=== PATIENT | male | born 1950 | race Caucasian/White ===

== ENCOUNTER 2019-10-02 10:52 | Outpatient (RCR) | payer MEDICARE, BC ==
[~2019-10-02 10:52] MED LIST: CALAN SR240 MG PO; CARDIZEM CD 30300 MG PO; CLOPIDOGREL; FAMVIR250 MG PO; FLOMAX 0.40.4 MG/CAP PO; HCTZ 25MG TAB25 MG PO; HCTZ 25MG25 MG PO; K-DUR 2020 MEQ PO; LIPITOR 80MG80 MG PO; LISINOPRIL; LISINOPRIL30 MG PO; PERCOCET 325 MG1 TA2 PO; PLAVIX 75MG TAB75 MG PO; POTASSIUM CH2 MEQ/ML PO; PREDNISONE20 MG PO; PRINIVIL40 MG PO; VERAPAMIL; VYTORIN; ZOFRAN ODT4 MG PO
[2019-10-13] MEDS ORDERED: CELEBREX 200MG200 MG PO (07:05)
[2019-10-13] MEDS ORDERED: ASPI325T6 PO (07:05)
[2019-10-13] MEDS ORDERED: ROXICODONE 55 MG/TAB PO (07:06)
[2019-10-13] MEDS ORDERED: ULTRAM 50MG TAB50 MG PO (07:06)
[2019-10-13] MEDS ORDERED: SENOKOT S 50 MG1 TAB PO (07:07)
== END 2019-12-11 11:03 | disposition home or self-care (01) ==
LOC: WSPT 10:52
DX: Z01.818 Encounter for other preprocedural examination (principal)

== ENCOUNTER 2019-10-11 06:30 | Day surgery (SDC) | payer MEDICARE, BC ==
[2019-10-11] VITALS (14 sets, daily range): BP systolic 114–152; BP diastolic 58–83; PULSE 60–83; TEMP 97.6–98.2
[~2019-10-11] VITALS: Ht 177.8 cm; Wt 88.2 kg
[2019-10-12 05:09] VITALS: BP 122/67; PULSE 67; TEMP 98.1
[2019-10-12 07:29] LABS: HEMOGLOBIN 12.5 g/dl (13.5-18.0)
[2019-10-12 07:32] LABS: HEMATOCRIT 35.8 % (42.0-52.0)
[2019-10-12 08:13] VITALS: BP 135/66; PULSE 73; TEMP 98.6
[2019-10-12 12:41] VITALS: BP 143/74; PULSE 73; TEMP 98.5
[2019-10-12 16:02] VITALS: BP 115/57; PULSE 58; TEMP 98.5
[2019-10-12 20:06] VITALS: BP 123/68; PULSE 60; TEMP 97.1
[2019-10-13 01:59] VITALS: BP 128/64; PULSE 63; TEMP 97.8
[2019-10-13 04:57] VITALS: BP 114/65; PULSE 76; TEMP 97.6
[2019-10-13] MEDS ORDERED: CELEBREX 200MG200 MG PO (07:05)
[2019-10-13] MEDS ORDERED: ASPI325T6 PO (07:05)
[2019-10-13 07:06] LABS: HEMATOCRIT 36.7 % (42.0-52.0); HEMOGLOBIN 12.8 g/dl (13.5-18.0)
[2019-10-13] MEDS ORDERED: ROXICODONE 55 MG/TAB PO (07:06)
[2019-10-13] MEDS ORDERED: ULTRAM 50MG TAB50 MG PO (07:06)
[2019-10-13] MEDS ORDERED: SENOKOT S 50 MG1 TAB PO (07:07)
[2019-10-13 07:42] VITALS: BP 138/67; PULSE 77; TEMP 97.6
[2019-10-13 13:33] VITALS: BP 100/46; PULSE 62; TEMP 97.7
== END 2019-10-13 14:35 | disposition home or self-care (01) ==
LOC: JCC 06:30 → SDCO 06:30 → JCC 06:31 → EDSTATUS 10:30 → JCC 10-13 14:35 → SDCO 10-13 14:35
PROVIDERS: Orthopaedic Surgery
DX: M16.11 Unilateral primary osteoarthritis, right hip (principal); E78.00 Pure hypercholesterolemia, unspecified; I69.354 Hemiplegia and hemiparesis following cerebral infarction affecting left non-dominant side; I69.328 Other speech and language deficits following cerebral infarction; I10 Essential (primary) hypertension; Z79.02 Long term (current) use of antithrombotics/antiplatelets; Z80.9 Family history of malignant neoplasm, unspecified; Z79.899 Other long term (current) drug therapy
CPT/HCPCS: OP; A4314; A9284; C1776; J0690; J1100; J2250; J2405; J2704; J3010; J7030; J7050; J7120

== ENCOUNTER 2019-11-16 09:00 | Outpatient (RCR) | payer MEDICARE, BC ==
[~2019-11-16 09:00] MED LIST changes: +ASPI325T6 PO; +CELEBREX 200MG200 MG PO; +ROXICODONE 55 MG/TAB PO; +SENOKOT S 50 MG1 TAB PO; +ULTRAM 50MG TAB50 MG PO
== END 2019-12-11 11:03 | disposition home or self-care (01) ==
LOC: WSPT 09:00
DX: Z01.812 Encounter for preprocedural laboratory examination (principal); M16.11 Unilateral primary osteoarthritis, right hip

== ENCOUNTER 2020-11-10 11:53 | Emergency (ER) | payer MEDICARE, BC ==
[~2020-11-10] VITALS: Ht 177.8 cm; Wt 86.4 kg
[2020-11-10 12:19] VITALS: TEMP 98.2
[2020-11-10] MEDS ORDERED: CEPHALEXIN500 M1 PO (14:46)
[2020-11-10 15:10] VITALS: BP 145/61; PULSE 88
== END 2020-11-10 15:16 | disposition home or self-care (01) ==
LOC: COL.ER 11:53
DX: S61.411A Laceration without foreign body of right hand, initial encounter (principal); E11.9 Type 2 diabetes mellitus without complications; I10 Essential (primary) hypertension; E78.5 Hyperlipidemia, unspecified; M79.7 Fibromyalgia; G89.29 Other chronic pain; M54.9 Dorsalgia, unspecified; Z79.891 Long term (current) use of opiate analgesic; Z79.899 Other long term (current) drug therapy; W20.8XXA Other cause of strike by thrown, projected or falling object, initial encounter

== ENCOUNTER → 2021-02-04 | Outpatient (CLI) | payer MEDICARE, BC ==
[~2021-02-04] MED LIST changes: +CEPHALEXIN500 M1 PO
== END ==
LOC: MHCPAIN 08:08
DX: M47.817 Spondylosis without myelopathy or radiculopathy, lumbosacral region (principal); M96.1 Postlaminectomy syndrome, not elsewhere classified; M54.50 Low back pain, unspecified; M53.3 Sacrococcygeal disorders, not elsewhere classified
CPT/HCPCS: G0463

== ENCOUNTER → 2021-02-18 | Outpatient (CLI) | payer MEDICARE, BC | LOC: MHCPAIN 12:53 | DX: M47.817 Spondylosis without myelopathy or radiculopathy, lumbosacral region (principal); M53.3 Sacrococcygeal disorders, not elsewhere classified | CPT/HCPCS: G0260; J1040; Q9967 ==

== ENCOUNTER → 2021-03-12 | Outpatient (CLI) | payer MEDICARE, BC | LOC: MHCPAIN 10:17 | DX: M47.816 Spondylosis without myelopathy or radiculopathy, lumbar region (principal); M54.50 Low back pain, unspecified; M53.3 Sacrococcygeal disorders, not elsewhere classified; M25.551 Pain in right hip | CPT/HCPCS: G0463 ==

== ENCOUNTER → 2021-07-08 | Outpatient (CLI) | payer MEDICARE, BC | LOC: MHCPAIN 10:11 | DX: M47.896 Other spondylosis, lumbar region (principal); M25.551 Pain in right hip; M53.3 Sacrococcygeal disorders, not elsewhere classified | CPT/HCPCS: G0463 ==

== ENCOUNTER 2022-05-24 17:25 | Emergency (ER) | payer MEDICARE, BC ==
[~2022-05-24 17:25] MED LIST changes: +B-121000 MCG PO; +HYGROTON 2525 MG/TAB
[2022-05-24 17:31] VITALS: TEMP 98.1
[2022-05-24 17:37] LABS: BASO # 0.1 K/mm3 (0.0-0.2); BASO % 0.7 % (0.0-2.0); EOS # 0.2 K/mm3 (0.0-0.7); EOS % 2.8 % (0.0-4.0); GRAN # 4.5 K/mm3 (1.4-6.5); GRAN % 53.2 % (42.2-75.2); HEMATOCRIT 46.2 % (42.0-52.0); HEMOGLOBIN 16.3 g/dl (13.5-18.0); LYMPH # 2.9 K/mm3 (1.2-3.4); LYMPH % 34.3 % (20.0-51.0); MEAN CELL VOLUME 87 fl (80.0-100.0); MEAN CORPUSCULAR HEMOGLOBIN 31 pg (27-31); MEAN CORPUSCULAR HGB CONC 35 g/dl (33.0-37.0); MEAN PLATELET VOLUME 8.6 fl (7.4-10.4); MONO # 0.7 K/mm3 (0.1-0.6); MONO % 8.4 % (1.7-9.3); PLATELET COUNT 346 K/mm3 (130-400); RED BLOOD COUNT 5.33 M/mm3 (4.20-5.60)
[2022-05-24 17:56] LABS: ALANINE AMINOTRANSFERASE 30 U/L (0-55); ALBUMIN 3.9 gm/dL (3.4-4.8); ALKALINE PHOSPHATASE 98 U/L (40-150); ANION GAP 11 mmol/L (7-16); AST,SGOT 18 U/L (5-34); BILIRUBIN,TOTAL 0.6 mg/dL (0.2-1.2); BLOOD UREA NITROGEN 21 mg/dL (8-26); CALCIUM 10.1 mg/dL (8.4-10.2); CARBON DIOXIDE 28 mmol/L (23-31); CHLORIDE 102 mmol/L (98-107); CREATININE, serum 0.94 mg/dL (0.72-1.25); GLUCOSE 98 mg/dL (70-99); POTASSIUM 3.4 mmol/L (3.5-4.5); SODIUM 141 mmol/L (136-145); TOTAL PROTEIN 7.5 gm/dL (6.2-8.1)
[2022-05-24 17:58] LABS: ARTERIAL BLD GAS O2 SATURATION 98.2 % (92-100); ARTERIAL BLD GAS TCO2 CT 30.2; ARTERIAL BLOOD GAS BASE EXCESS 4.2 (-2-2); ARTERIAL BLOOD GAS HCO3 28.9 meq/L (22-26); ARTERIAL BLOOD GAS PCO2 43.1 mmHg (35-45); ARTERIAL BLOOD GAS PO2 109.6 mmHg (80-100); ARTERIAL BLOOD GAS pH 7.44 (7.35-7.45)
[2022-05-24 18:14] LABS: TROPONIN-I < 0.010 ng/mL (0.00-0.033)
[2022-05-24] MEDS ORDERED: PREDNISONE20 MG PO (18:15)
[2022-05-24] MEDS ORDERED: PROAIR HFA0.09 MG/AC IH (18:45)
[2022-05-24 19:02] VITALS: BP 134/74; PULSE 77
== END 2022-05-24 19:05 | disposition home or self-care (01) ==
LOC: COL.ER 17:25
PROVIDERS: Physician Assistant
DX: J45.901 Unspecified asthma with (acute) exacerbation (principal); E11.9 Type 2 diabetes mellitus without complications
CPT/HCPCS: J2920

== ENCOUNTER 2023-10-19 14:44 | Emergency (ER) | payer MEDICARE, BC ==
[~2023-10-19] VITALS: Ht 177.8 cm; Wt 82.7 kg
[~2023-10-19 14:44] MED LIST changes: +POLYMYXIN B/TRIMETH OU; +PROAIR HFA0.09 MG/AC IH
[2023-10-19 14:59] VITALS: TEMP 97.4
[2023-10-19] MEDS ORDERED: fentaNYL 50 MCG/ML 2 ML VIAL IV ONE (15:15)
[2023-10-19] MEDS ORDERED: NORCO 325 MG-51 TAB PO (16:23)
[2023-10-19 16:26] VITALS: BP 120/66; PULSE 59
== END 2023-10-19 16:37 | disposition home or self-care (01) ==
LOC: COL.ER 14:44
DX: M54.32 Sciatica, left side (principal)
CPT/HCPCS: J3010; J3360

== ENCOUNTER 2023-10-22 09:34 | Emergency (ER) | payer MEDICARE, BC ==
[~2023-10-22] VITALS: Ht 177.8 cm; Wt 86.4 kg
[~2023-10-22 09:34] MED LIST changes: +NORCO 325 MG-51 TAB PO
[2023-10-22 09:36] VITALS: TEMP 97.1
[2023-10-22] MEDS ORDERED: methylPREDNISolone Sod Succ 125 MG/2 ML VIAL IV ONE (10:00)
[2023-10-22] MEDS ORDERED: Albuterol/Ipratropium 3 MG-0.5 MG/3 ML Neb Soln IH ONE (10:00)
[2023-10-22 10:51] LABS: BASO # 0.1 K/mm3 (0.0-0.2); BASO % 0.4 % (0.0-2.0); EOS # 0.1 K/mm3 (0.0-0.7); EOS % 0.9 % (0.0-4.0); GRAN # 9.4 K/mm3 (1.4-6.5); GRAN % 76.1 % (42.2-75.2); HEMATOCRIT 43.2 % (42.0-52.0); HEMOGLOBIN 15.2 g/dl (13.5-18.0); LYMPH # 1.7 K/mm3 (1.2-3.4); LYMPH % 13.5 % (20.0-51.0); MEAN CELL VOLUME 88 fl (80.0-100.0); MEAN CORPUSCULAR HEMOGLOBIN 31 pg (27-31); MEAN CORPUSCULAR HGB CONC 35 g/dl (33.0-37.0); MEAN PLATELET VOLUME 8.6 fl (7.4-10.4); MONO % 8.1 % (1.7-9.3); PLATELET COUNT 268 K/mm3 (130-400); RED BLOOD COUNT 4.89 M/mm3 (4.20-5.60); REDCELL DISTRIBUTION WIDTH-CV 12.6 % (11.5-14.5)
[2023-10-22 11:20] LABS: ALANINE AMINOTRANSFERASE 28 U/L (0-55); ALBUMIN 3.7 g/dL (3.4-4.8); ALKALINE PHOSPHATASE 84 U/L (40-150); ANION GAP 13 mmol/L (7-16); AST,SGOT 15 U/L (5-34); BILIRUBIN,TOTAL 0.5 mg/dL (0.2-1.2); BLOOD UREA NITROGEN 17 mg/dL (8-26); CALCIUM 9.9 mg/dL (8.4-10.2); CHLORIDE 101 mEq/L (98-107); CREATININE, serum 0.88 mg/dL (0.72-1.25); GLUCOSE 130 mg/dL (70-99); SODIUM 140 mEq/L (136-145)
[2023-10-22 12:07] LABS: TROPONIN-I < 0.010 ng/mL (0.00-0.033)
[2023-10-22] MEDS ORDERED: PREDNISONE20 MG PO (12:28)
[2023-10-22 12:36] VITALS: BP 138/66; PULSE 71
== END 2023-10-22 12:45 | disposition home or self-care (01) ==
LOC: COL.ER 09:34
PROVIDERS: Personal Emergency Response Attendant
DX: R06.00 Dyspnea, unspecified (principal)
CPT/HCPCS: J2919